=== PATIENT | female | born 1965 | race Caucasian/White ===

== ENCOUNTER 2022-08-24 11:49 | Emergency (ER) | payer BC, SELFPAY ==
[2022-08-24 12:19] VITALS: BP 158/103; PULSE 93; RESP 16; TEMP 36.9; O2SAT 98; BMI 39.9
[2022-08-24 12:44] VITALS: BP 171/97; PULSE 95; RESP 20; O2SAT 96
--- NOTE | 2022-08-24 12:48 | ED.GENADULT ---
HPI - General Adult General Date Seen: 08/24/22 Chief complaint: Unspecified Complaint, Adult Stated complaint: Covid+ getting worse Time Seen by Provider: 08/24/22 11:59 Source: patient History of Present Illness HPI narrative: Patient is a 56-year-old woman with underlying hypertension who presents for evaluation of COVID. She says on Thursday she developed a little bit of a scratchy throat and then on Thursday tested positive for COVID. She has had a cough and sore, scratchy throat since then. She comes in today, on Thursday, saying that she thinks she should be better by now. She has not run fevers. Denies chest pain. Is not short of breath. She has had 3 shots for COVID. She had COVID once previously and says that she was only sick for a few days. She does not currently smoke and has no major health problems. Related Data Home Medications Medication Instructions Recorded Confirmed Tylenol 08/24/22 amlodipine 5 mg tablet mg 08/24/22 Allergies Allergy/AdvReac Type Severity Reaction Status Date / Time No Known Drug Allergies Allergy Verified 08/24/22 12:22 Review of Systems Status of ROS: Reports: 10 or more systems reviewed and unremarkable except as noted in History and below [facility] Social History Smoking Status: Former smoker How often do you have a drink containing alcohol: monthly or less AUDIT-C Alcohol total score: 1 Non-prescribed substance use: denies use Exam Narrative: Exam Narrative: Vital signs as noted above. In general, an alert, nontoxic woman. Breathing easily. Head: Normocephalic, atraumatic. Eyes: Pupils are equal reactive. Extraocular movements are full. Conjunctivae are normal. ENT: Mucous membranes are moist. Throat is normal. Neck: Supple without lymphadenopathy. Heart: Regular rate and rhythm. No murmur or rub. Lungs: Clear bilaterally. No increased work of breathing, crackles or wheezes. Extremities: Well perfused. No edema. No calf tenderness. Pulses intact. Neurologic: Patient is alert and oriented to person and place. Speech is fluent. Face is symmetric. Moves all extremities equally. Affect: Tearful. Skin: Warm and dry. Well perfused. Const: Vital Signs, click to edit/add: Vital Signs - 24 hr 12/11/22 12:19 08/24/22 12:44 Temperature 98.4 F Pulse Rate [Right Pulse Oximeter] 93 95 Respiratory Rate 16 20 Blood Pressure [Le ft Upper Arm] 158/103 H 171/97 H Pulse Oximetry 98 96 Oxygen Delivery Me thod Room Air Room Air Documenting provider has reviewed patient's vital signs: yes Course Course Hospital Course: I had a lengthy conversation with her. Her exam is normal, vital signs aside from her blood pressure being abated, are reassuring. She is not tachypneic, O2 sats are normal. Lungs are clear. She is on day 6 of illness. She had brought up the possibility of Paxlovid, primarily because she was under the impression that it would help her feel better faster. I reviewed with her that 1., it has not been shown to reduce symptoms, 2., needs to be started in the 1st 5 days of illness, and 3. Given that she is under 65 without significant health problems, would not likely provide her significant benefit in any case. Overall, she does not show signs of significant illness here today. I think lab and x-ray are unlikely to provide a lot of additional benefit. Discussed that COVID is very frequently at 10-14 day illness. If not improving over the next week, recheck with primary care. Return for development of severe symptoms, worsening shortness of breath, offer the idea of an oximeter at home to monitor oxygen levels. Vital Signs Vital signs: Initial Vital Signs Temperature 98.4 F 08/24/22 12:19 Temperature Source Temporal Artery Scan 08/24/22 12:19 Pulse Rate 93 08/24/22 12:19 Respiratory Rate 16 08/24/22 12:19 Blood Pressure 158/103 H 08/24/22 12:19 Blood Pressure Mean 121 08/24/22 12:19 Blood Pressure Position Supine 08/24/22 12:19 Pulse Oximetry 98 08/24/22 12:19 Oxygen Delivery Method 08/24/22 12:19 Vital Signs Temperature 98.4 F 08/24/22 12:19 Pulse Rate 93 08/24/22 12:19 Respiratory Rate 16 08/24/22 12:19 Blood Pressure 158/103 H 08/24/22 12:19 Pulse Oximetry 98 08/24/22 12:19 Oxygen Delivery Method 08/24/22 12:19 Temperature 98.4 F 08/24/22 12:19 Pulse Rate 95 08/24/22 12:44 Respiratory Rate 20 08/24/22 12:44 Blood Pressure 171/97 H 08/24/22 12:44 Pulse Oximetry 96 08/24/22 12:44 Oxygen Delivery Method 08/24/22 12:44 Discharge Plan Discharge Clinical Impression: COVID-19 Patient Disposition: Home, Self-Care Condition: Stable Instructions: COVID-19 (Coronavirus Disease 2019) (ED) Additional Instructions: Ibuprofen 400 mg plus Tylenol 1000 mg 3 times daily with food as needed for sore throat or other aches and pains. Consider an oximeter at home to keep track of your oxygen levels. Levels below 90% you should be seen again. Recheck with primary care if not improved over the next 10 days. Return at any time for severe symptoms such as shortness of breath, chest pain, fainting, or other new symptoms. Prescriptions: No Action amlodipine 5 mg tablet Label Comments: Take 1 Tablet (5 mg) by mouth once daily. Tylenol Follow Up/Referrals: Lupe Madden DO [Primary Care Provider] - Stand Alone Forms: [facility] Info Instructions
== END 2022-08-24 12:59 | disposition home or self-care (01) ==
LOC: ED 12:53
PROVIDERS: Emergency Provider Emergency Medicine; PCP Family Medicine
DX: U07.1 COVID-19 (principal)
CPT/HCPCS: 99283

== ENCOUNTER 2022-12-26 16:37 | Emergency (ER) | payer BC, SELFPAY ==
[2022-12-26 16:47] VITALS: BP 132/72; PULSE 78; RESP 20; TEMP 36; O2SAT 96; BMI 40.7
--- NOTE | 2022-12-26 17:07 | ED.GENADULT ---
HPI - General Adult General Time Seen by Provider: 17:07 Date Seen: 12/26/22 Chief complaint: Dizziness/Vertigo Stated complaint: Dizziness, vomiting, Noise in left ear Time Seen by Provider: 12/26/22 17:05 Source: patient and RN notes reviewed Mode of arrival: ambulatory Limitations: no limitations History of Present Illness HPI narrative: 57-year-old female is coming in with episode of spinning sensation, ringing in her right ear, pressure in the right side of her head that started today. She was at work and about 130 started feeling like she was dizzy or spinning. By the time she got home, progressed to significant nausea and vomiting with it. When she got up to try to go to the bathroom felt like she was listing to the left. She had a similar episode about 2 weeks ago that started in the afternoon about 430, went to better 0 9, when she woke up around midnight, had gone away. She is notice some diminished hearing in the right ear. She has moved her head set from the right ear to the left side at work. She notes sometimes that she has felt like a whooshing sound in the right ear. No recent fevers chills or cough cold symptoms, no chest pain or palpitations, no shortness of breath. Extremities are working fine, no numbness tingling weakness. She is not aware of any family history of Meniere's disease. She is hoping that we can just pull some wax out of her ear, it feels full. Related Data Home Medications Medication Instructions Recorded Confirmed Tylenol 08/24/22 amlodipine 5 mg tablet mg 08/24/22 Previous Rx's Medication Instructions Recorded diazepam 5 mg tablet (Valium) 5 mg PO BID PRN #4 tabs 12/26/22 methylprednisolone 4 mg tablets in See Rx Instructions PO .COMPLEX 12/26/22 a dose pack (Medrol (Kevin)) #21 ea Allergies Allergy/AdvReac Type Severity Reaction Status Date / Time No Known Drug Allergies Allergy Verified 12/26/22 16:54 Review of Systems Status of ROS: Reports: 6 or more systems reviewed and unremarkable except as noted in History and below [facility] Social History Smoking Status: Former smoker How often do you have a drink containing alcohol: monthly or less AUDIT-C Alcohol total score: 1 Non-prescribed substance use: denies use Exam Const: Vital Signs, click to edit/add: Vital Signs - 24 hr 12/26/22 16:47 Temperature 96.8 F L Pulse Rate [Pulse Oximeter] 78 Respiratory Rate 20 Blood Pressure [Le ft Upper Arm] 132/72 Pulse Oximetry 96 Oxygen Delivery Me thod Room Air 57-year-old female is alert interactive no apparent distress. She has right beating nystagmus. Pupils are otherwise equal round and reactive, extraocular muscles intact with conjugate gaze. TMs canals are normal. Symmetrical facial function, oropharynx normal, speech normal. Neck is supple, no masses, no cervical adenopathy. Lungs are clear good air entry. CV regular rate and rhythm no murmur, normal S1-S2, no S3 or S4. No loss of motor strength, 5/5 and symmetric in upper and lower extremities. Normal light touch sensation. No dysmetria or tremors noted. Documenting provider has reviewed patient's vital signs: yes Course Reevaluation(s) Reevaluation #1: Spent time talking with patient and her regarding Meniere's disease. It is recommended by the ENT that I talked to to get neuro imaging but does not need to happen emergently. He would recommend an MRI with internal auditory canals with IV contrast. This can be done outpatient through the primary care clinic. I do recommend follow-up with ENT. He also recommended a Medrol Dosepak. I will send a prescription for few tablets of Valium should she have recurrent symptoms in the interim. I did go on up-to-date in review some of the symptoms, diagnosis, recommendations as far as Meniere's. Time: 18:47 Vital Signs Vital signs: Initial Vital Signs Temperature 96.8 F L 12/26/22 16:47 Temperature Source Temporal Artery Scan 12/26/22 16:47 Pulse Rate 78 12/26/22 16:47 Pulse Rhythm Regular 12/26/22 16:47 Pulse Strength 3+ Normal 12/26/22 16:47 Respiratory Rate 20 12/26/22 16:47 Blood Pressure 132/72 12/26/22 16:47 Blood Pressure Mean 92 12/26/22 16:47 Blood Pressure Position Right Lateral 12/26/22 16:47 Pulse Oximetry 96 12/26/22 16:47 Oxygen Delivery Method Room Air 12/26/22 16:47 Vital Signs Temperature 96.8 F L 12/26/22 16:47 Pulse Rate 78 12/26/22 16:47 Respiratory Rate 20 12/26/22 16:47 Blood Pressure 132/72 12/26/22 16:47 Pulse Oximetry 96 12/26/22 16:47 Oxygen Delivery Method Room Air 12/26/22 16:47 Temperature 96.8 F L 12/26/22 16:47 Pulse Rate 78 12/26/22 16:47 Respiratory Rate 20 12/26/22 16:47 Blood Pressure 132/72 12/26/22 16:47 Pulse Oximetry 96 12/26/22 16:47 Oxygen Delivery Method Room Air 12/26/22 16:47 Critical Care Time Critical Care Time Critical Care Time: No Discharge Plan Discharge Clinical Impression: Vertigo Patient Disposition: Home, Self-Care Condition: Improved Instructions: Meniere Disease (ED), Vertigo (ED) Additional Instructions: Take Medrol Dosepak as prescribed. Need to follow-up with your primary care provider or contact them and see if they will order an MRI with IV contrast of the brain and internal auditory canals. Recommend follow-up with ENT as soon as you can. Should you have recurrent symptoms, can try meclizine which is [id number]. If you have severe symptoms, I am sending in a prescription for Valium. Note that this is addictive in you should not drive or operate machinery while on it. I am not sending in enough tablets for you to become addicted to it but it is a consideration if you would need a long-term prescription. Review food recommendations associated with Meniere's disease. It is recommended you try to stay on a low-sodium diet. Activity Level: Activity as Tolerated Prescriptions: New methylprednisolone [Medrol (Kevin)] 4 mg tablets,dose pack See Rx Instructions .ROUTE .COMPLEX Qty: 21 0RF Rx Instructions: orally per package directions diazepam [Valium] 5 mg tablet 5 mg PO BID PRNQty: 4 0RF No Action amlodipine 5 mg tablet Patient Comments: Take 1 Tablet (5 mg) by mouth once daily. Tylenol Follow Up/Referrals: Lupe Madden DO [Primary Care Provider] - Stand Alone Forms: [facility] Info Instructions
== END 2022-12-26 19:04 | disposition home or self-care (01) ==
PROVIDERS: Emergency Provider Family Medicine; PCP Family Medicine
DX: R42 Dizziness and giddiness (principal)
CPT/HCPCS: 99282; 99283

== ENCOUNTER 2023-03-05 10:12 | Outpatient (CLI) | payer BC, SELFPAY | END 2023-03-05 10:13 | disposition home or self-care (01) | PROVIDERS: PCP Family Medicine; Visit Provider Otolaryngology | DX: R42 Dizziness and giddiness (principal) | CPT/HCPCS: 84443; 86039; 86431; 86618 ==

== ENCOUNTER 2024-07-14 06:19 | Day surgery (SDC) | payer BC, SELFPAY ==
[2024-07-14] VITALS (8 sets, daily range): BP systolic 141–153; BP diastolic 75–90; PULSE 71–85; RESP 16; TEMP 36.4; O2SAT 96–99; BMI 42.1
--- OUTSIDE RECORDS SUMMARY | 2024-07-14 06:21 | XMS_ITS | Clinical Summary ---
Author Organization [facility] Address [place], [place] [address] Care Team Providers Care Senior Games Technician Name Role Phone Lupe Madden DO Primary Care Provider Allergies Active Allergy Reactions Criticality Noted Date Comments Cyclobenzaprine Other - Describe In Comment Field 05/13/2019 constipation Medications Medication Sig Dispensed Refills Start Date End Date Status cholecalciferol (VITAMIN D) 1,000 unit capsule Take 5,000 units by mouth once daily. 73045 units a week 0 01/09/2014 Active ondansetron (ZOFRAN ODT) 4 mg disintegrating tabletIndications:Men iere disease, right Place 1 Tablet (4 mg) on the tongue every 8 hours if needed for Nausea/Vomiting. 30 Tablet 1 04/01/2023 Active loratadine (Claritin) 10 mg tablet Take 10 mg by mouth once daily. Active diazePAM (VALIUM) 5 mg tabletIndications:Men iere disease, unspecified laterality TAKE ONE TABLET (5mg) BY MOUTH TWICE DAILY NEEDED FOR Meniere's 10 Tablet 1 05/27/2023 Active CPAPIndications:ANALISA (obstructive sleep apnea) CPAP machine for home use at pressure of 4-15 cmw; nasal mask x1/3month with nasal pillows x 2/mo Heat humidifier x 1/5 year, Humidifier chamber x 1/6mo, standard tubing x 1/3mo, Headgear x 1/6mo, Chin strap x 1/6 months, Filters: Disposable x 2pk/1mo & Reusable x 1pk/6mo Length of use- 99% Use- daily 1 Each 11 07/01/2023 Active amLODIPine (NORVASC) 5 mg tabletIndications:Ess ential hypertension Take 1 Tablet (5 mg) by mouth once daily. 90 Tablet 4 06/01/2024 Active Active Problems Problem Noted Date Diagnosed Date Pap smear for cervical cancer screening 06/20/20 24 Overview (06/20/2024): 06/2024 NIL/HPV negative Plan: HPV-based testing due 06/2029 White coat syndrome with diagnosis of hypertensi on 05/14/2019 Routine adult health maintenance 12/20/2018 Overview (12/20/2018): Colonoscopy 12/2018 normal, repeat in 10 years Essential hypertension 2018 Nodule of flexor tendon sheath 2018 Tendonitis of finger 2018 ANALISA 04/08/2016 AHI-18 04/24/2016 Encounters Date Type Department Care Team Description 07/13/2024 Telephone [facility] [address] [place] [address] Lupe Madden DO Referral 07/11/2024 Orders Only [facility] [address] [place] [address] Lupe Madden DO Lab (Order Update) 07/06/2024 1:50 PM CDT Nurse/Clinic Staff Only [facility] [address] [place] [address] 07/06/2024 1:20 PM CDT Ancillary Procedure [facility] [address] [place] [address] 07/06/2024 Travel 07/04/2024 Travel 06/23/2024 Medical Messaging [facility] [address] [place] [address] Lupe Madden DO Carpal tunnel Referral 06/23/2024 Orders Only [address] [address] Lupe Madden DO <No scans attached> 06/22/2024 Orders Only [facility] [address] [place] [address] Lupe Madden DO 1 scan: (1-Ord) [facility] 06/10/2024 Orders Only [facility] [address] [place] [address] Lupe Madden DO <No scans attached> 06/02/2024 Orders Only [facility] Scanner 1 scan: (1-Ord) [facility], PAP AND/OR MOLECULAR RESULTS, 06/02/2024 06/02/2024 Orders Only [facility] Scanner 1 scan: (1-Ord) [facility], MULTIPLE LABS, 06/02/2024 06/01/2024 2:15 PM CDT Office Visit [facility] [address] [place] [address] Lupe Madden DO Physical (58 yr/); Referral (carpal tunnel referral/); Immunization/Injecti on 06/01/2024 Travel 05/30/2024 Refill [facility] [address] [place] [address] Lupe Madden DO Refill Request (Amlodipine) from Last 3 Months Immunizations Name Administration Dates Next Due AMB Influenza, IIV3 (Age >=3 years)(Flu Clinic Only) 07/01/2013,07/15/2012,07/10/2011 AMB Influenza, IIV4 PF (=>6 mos Flulaval,Fluzone Fluarix)(Flu Clinic Only) 07/04/2020,07/02/2019,07/03/2017,2015,08/03/2015,06/29/2014 INFLUENZA, IIV3 PF (AGE >= 6 MO) 07/06/2024,06/15 Influenza, IIV3 (Age >=3 years) 07/01/20 10,07/21/2008,07/08/2007,2005,07/09/2005 Influenza, IIV4 05/27/2023,,05/22/2021,2017 Td (Age >=7 Years) 07/31/2003 Td, Preservative Free (age > = 7 Years) 06/01/2024 Tdap 01/09/2014 Zoster (Shingrix-RZV, recombinant) 02/09/2019, Family History Medical History Relation Name Comments Other Father [place] Cancer-breast Maternal Aunt Hypertension Mother Relation Name Status Comments Father Maternal Aunt Mother Social History Tobacco Use Types Packs/Day Years Used Date Smoking Tobacco: Never Smokeless Tobacco: Never Tobacco Cessation:Counseling Given: Yes Alcohol Use Standard Drinks/Week Comments Not Currently 0 (1 standard drink = 0.6 oz pur e alcohol) one drink every three months PHQ-2 Answer Date Recorded PHQ-2 TOTAL SCORE 0 06/01/2024 Social Connections Answer Date Recorded Do you often feel lonely or isolated from those around you? 0 06/01/2024 Financial Resource Strain Answer Date R ecorded Difficulty of Paying Living Expenses 3 06/01/2024 Difficulty of Paying Living Expenses Not on file 06/01/2024 Food Insecurity Answer Date Recorded Do you worry your food will run out before you are able to buy more? 1 06/01/2024 Transportation Needs Answer Date Record ed Does lack of transportation keep you from medica l appointments? 1 06/01/2024 Does lack of transportation keep you from work, meetings or getting things that you need? 1 06/01/2024 Housing Stability Answer Date Recorded What is your housing situation today? 1 06/01/2024 Sex and Gender Information Value Date Recorded Sex Assigned at Not on file Gender Identity Not on file Sexual Orientation Not on file Obstetrics History Para Term AB IAB SAB Ectopic Multiple Livin g Live Births 1 1 Date Outcome GA Total Labor Labor/2nd/3rd Weight Sex Type Anes PTL Claudia A1 A5 Name Clin Last Filed Vital Signs Vital Sign Reading Time Taken Comments Blood Pressure 144/84 06/01/2024 2:22 PM CDT Pulse 91 06/01/2024 2:22 PM CDT Temperature 36.8 ??C (98.3 ??F) 06/01/2024 2:23 PM CD T Respiratory Rate 18 05/26/2023 2:15 PM CDT Oxygen Saturation 96% 06/01/2024 2:22 PM CDT Inhaled Oxygen Concentration - - Weight 106.4 kg (234 lb 9.6 oz) 06/01/2024 2:22 PM CDT Height 159.6 cm (5' 2.84) 06/01/2024 2:22 PM CD T Body Mass Index 41.78 06/01/2024 2:22 PM CDT Plan of Treatment Upcoming Encounters Date Type Department Care Team (Late st Contact Info) Description 07/20/2024 11:15 AM [facility] [employer] Orders Only [facility] [address] [place] [address] Lab, [facility] Maintenance Due Date Last Done Comments COVID-19 vaccine series ( season) 2024 07/24/2021, 10/26/2020, 09/28/2020 BMI (ht and wt on same day) for age 18+ 06/01/2025 06/01/2024, 06/24/2023, 05/27/2023, Additional history exists Depression screening for age 12+ 06/01/2025 06/01/2024, 05/27/2023, 05/26/2023, Additional history exists Mammogram for age 45-75 07/06/2025 07/06/20 24, 07/01/2023, 06/25/2022, Additional history exists Lipids for age 45-75 05/27/2028 05/27/2023, 06/11/2022, 05/22/2021, Additional history exists Colonoscopy through age 75 12/20/202812/20, 12/20/2018, 12/20/2018, Additional history exists Pap test for age 21-65 06/15/2029 , 11/17/2018, 11/17/2018, Additional history exists Tetanus booster 06/01/2034 06/01/2024, 12/14, 07/31/2003 Tdap Completed 01/09/2014 Hepatitis C screening for age 18-79 Completed 11/17/2018 Zoster (shingles) series for age 50+ Completed 02/09/2019, 11/17/2018 HIV for age 15-65 Completed 05/27/2023 Influenza for age 50-64 Completed 07/06/20 24, 05/27/2023, 05/23/2022, Additional history exists Pneumococcal series for age 6-64 Aged Out No longer eligible based on patient's age to complete this topic Procedures Procedure Name Priority Date/Time Associated Diagnosis Comments XR MAMMO BILAT SCREENING Routine 07/06/2024 1:48 PM CDT Breast cancer screening by mammogram EMG Routine 06/17/2024 12:00 AM CDT Carpal tunnel syndrome on both sides 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 PAP AND HPV DNA - AGE 25 AND OVER ([facility]) Routine 06/15/2024 6:00 PM CDT Screening for cervical cancer SCAN-PATHOLOGY REPORT 06/02/2024 12:00 AM CDT SCAN-PATHOLOGY REPORT 06/02/2024 12:00 AM CDT ANTI HIV 1/2 Routine 05/27/2023 8:50 AM CDT Screening for HIV (human immunodeficiency virus) LIPID PANEL W REFLEX MEASURED LDL Routine 05/27/2023 8:50 AM CDT Lipid screening COLONOSCOPY SCREENING Routine 12/20/2018 12:00 PM CDT Screening for colon cancer ANTI HCV Routine 11/17/2018 9:49 AM [facility] [employer] Need for hepatitis C screening test from Last 3 Months or Most Recently Relevant to Health Maintenance Results * XR MAMMO BILAT SCREENING (07/06/2024 1:48 PM CDT) Anatomical Region Laterality Modality BREASTS, Breast Left, Breast Right Bilateral Mammography Impressions 07/06/2024 3:29 PM CDT ??There is no radiographic evidence for malignancy. ??Recommend annual mammograms. MAMMOGRAM ASSESSMENT: ??ACR 1 Negative PATIENTS: You will also receive a letter with your examination results in an easy to read format. ??If you have questions about your results, please contact your referring provider. Narrative 07/06/2024 3:29 PM CDT For Patients: As a result of the Century Cures Act, medical imaging exams and procedure reports are released immediately into your electronic medical record. You may view this report before your referring provider. If you have questions, please contact your health care provider. XR MAMMO BILAT SCREENING [[id number]] CLINICAL HISTORY: ??This is an asymptomatic 58 y.o. patient. INDICATION FOR EXAM: Mammogram Screening. TECHNIQUE: CC & MLO views were obtained. ??This study was evaluated with the assistance of Computer-Aided Detection. COMPARISON FILM: Yes 07/01/23 [facility] 06/25/22 [facility] FINDINGS: ??There are scattered areas of fibroglandular density. There are no dominant masses, suspicious micro calcifications or areas of architectural distortion. Lupe Madden DO MAMMO * [facility] (06/17/2024 12:00 AM CDT) Lupe Madden DO NEUROLOGY ORD * 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 THIN PREP PAP AND HPV DNA - AGE 25 AND OVER ([facility] (06/15/2024 6:00 PM CDT) CLINICAL INFORMATION [facility] Comment:Postmenopausal LMP [facility] Comment:NONE GIVEN PREV. PAP [facility] Comment:NONE GIVEN PREV. BX [facility] Comment:NONE GIVEN SOURCE 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 [facility] Comment:Cervix STATEMENT OF ADEQUACY [facility] Comment: Satisfactory for evaluation. Endocervical/transformation zone component present. INTERPRETATION/RESU LT [facility] Comment: Cytology Results: Negative for intraepithelial lesion or malignancy. COMMENT [facility] Comment: This Pap test has been evaluated with computer assisted technology. 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 It is not a diagnostic test and is subject to false negative and false positive results. It is most reliable when a satisfactory sample, regularly obtained, is submitted with relevant clinical findings and history, and when the Pap result is evaluated along with historic and current clinical information. HPV HIGH RISK Not Detected NOT DETECTED [facility] Comment: Not Detected High Risk HPV types (16,18,31,33,35,39,45,51,52, 56,58,59,66,68) were not detected. Other HPV types which cause anogenital lesions may be present. The significance of the other types of HPV in malignant processes has not been established. Methodology: Real Time PCR ? NO COLLECTION DATE RECEIVED. WE HAVE USED THE DATE THE SPECIMEN WAS RECEIVED BY THIS LABORATORY THE COLLECTION DATE. IF THIS IS INCORRECT, PLEASE CONTACT CLIENT SERVICES. PHONE NUMBER: [phone] Other (Other) 06/02/2024 9:15 AM CDT Narrative [facility] - 06/15/2024 6:00 PM CDT FASTING: UNKNOWN Lupe Madden DO PATHOLOGY/CYTOLOGY Performing Organization Address [facility]/ZIP Co de Phone Number [facility] [address] [place] [address], [address] [place] [address] * SCAN-PATHOLOGY REPORT (06/02/2024 12:00 AM CDT) Only the most recent of2 resultswithin the time period is included. Scanner OTHER * LIPID PANEL W REFLEX MEASURED LDL (05/27/2023 8:50 AM CDT) CHOLESTEROL,TOTAL 185 100 - 199 mg/dL 05/28/2023 1:27 AM CDT [facility] Comment: Cholesterol, Total Reference Ranges Desirable <200 mg/dL Borderline 200-239 mg/dL High >=240 mg/dL TRIGLYCERIDES 74 <150 mg/dL 05/28/2023 1:27 AM CDT [email or web address] HDL CHOLESTEROL 51 >40 mg/dL 1:27 AM CDT [facility] NON-HDL CHOLESTEROL 134 <145 mg/dl 05/28/2023 1:27 AM CDT [facility] CHOL/HDL RATIO 3.63 <4.50 05/28/2023 1:27 AM CDT [facility] LDL CHOLESTEROL 119 <=130 mg/dL 05/28/2023 1:27 AM CDT [facility] VLDL CHOLESTEROL 15 <=30 mg/dL 05/28/2023 1:27 AM CDT [facility] PROVIDER ORDERED STATUS RANDOM 05/28/2023 1:27 AM CDT [facility] Blood BLOOD SPECIMEN / Unknown Venipuncture / Unknown 05/27/2023 8:50 AM CDT 05/27/2023 8:55 AM CDT Lupe Madden DO CHEMISTRY Performing Organization Address [facility] Co de Phone Number [facility] [address] [place] [address], * ANTI HIV 1/2 [21521.0] (05/27/2023 8:50 AM CDT) HIV-1/HIV-2 SCREEN Non-Reacti ve Non-Reacti ve 05/28/2023 1:11 AM CDT [facility] Comment:HIV-1 p24 and HIV-1/ HIV-2 Ab Not Detected. Blood BLOOD SPECIMEN / Unknown Venipuncture / Unknown 05/27/2023 8:50 AM CDT 05/27/2023 8:55 AM CDT Lupe Madden DO SEND OUTS Performing Organization Address City/[facility]/ZIP Co de Phone Number [facility] [address] [place] [address], * COLONOSCOPY SCREENING (12/20/2018 12:00 PM CDT) Lupe Madden DO GI PROCEDURE ORD * ANTI HCV [[id number]] (11/17/2018 9:49 AM [facility] [facility] [employer]) HEPATITIS C ANTIBODY Non-React troy Non-React troy 11/17/2018 5:03 PM [facility] [facility] Comment:Antibodies to HCV no t detected; does not exclude the possibility of exposure to HCV. Blood BLOOD SPECIMEN / Unknown Venipuncture / Unknown 11/17/2018 9:49 AM [facility] 11/17/2018 9:51 AM [facility] [facility] [employer] Lupe Madden DO SEND OUTS [facility] [address] [place] [address], [place] from Last 3 Months or Most Recently Relevant to Health Maintenance Care Teams Senior Games Technician Relationship Specialty Start Date End Date [place] [address] [address] PCP - General Family Practice 09/20/13
[2024-07-14] MEDS: LIDOCAINE 1%-EPI 1:100,000 20 ML INFILTRATI (06:23)
[2024-07-14] MEDS: BUPIVACAINE 0.5 %/EPI 1:200K INJECTION (07:15)
--- NOTE | 2024-07-14 07:56 | P.ORPRC_ITS ---
Procedure Note Date of procedure: 07/14/24 Procedure: Preop diagnosis: Right upper extremity carpal tunnel syndrome Postop diagnosis: Right upper extremity carpal tunnel syndrome Procedure: Right upper extremity carpal tunnel release Anesthesia: Local Surgeon: Fortunato Schmidt MD front office medical assistant: ANNA Elise EBL: 2 mL Complications: None Specimens: None Drains: None Indications: The patient has a history of right upper extremity carpal tunnel syndrome sympt oms. Despite appropriate nonoperative management consisting of nighttime bracing and occupational therapy they continue to have symptoms. Operative intervention was recommended. The risks, benefits alternatives and expected outcomes were discussed in detail. These included but were not limited to: Infection, bleeding, injury to blood vessel or nerve, venous thromboembolism. All questions were answered to their satisfaction. The patient was placed supine on the operating room table. Local anesthesia was established with 0.5% Marcaine with epinephrine and 2% lidocaine with epinephrine. The hand was prepped and draped in usual sterile fashion. A longitudinal incision was made centered over the radial border of the ring finger at the base of the palm. Subcutaneous dissection was sharply taken through the palmar fascia and the palmaris brevis to the transverse carpal ligament. The ligament was divided in line with the incision. Proximal and distal dissection was carried with tenotomy and Metzenbaum scissors for a wide decompression of the carpal tunnel. The wound was closed with a 3-0 nylon. A bulky dry dressing was applied, sponge and needle counts were correct x 2. The patient tolerated the procedure well, there were no apparent complications. They were sent to same day surgery in satisfactory condition. Plan: Use of the hand as tolerates. Discontinue the intraoperative dressing on postoperative day 3 and may get the wound wet as tolerates. Follow up in the office in 2 weeks for a wound check and suture removal.
== END 2024-07-14 08:15 | disposition home or self-care (01) ==
LOC: OR 06:20
PROVIDERS: PCP Family Medicine; Visit Provider Orthopaedic Surgery
PROC: (CPT 64721; principal; 2024-07-14 07:15)
DX: G56.01 Carpal tunnel syndrome, right upper limb (principal)
CPT/HCPCS: 64721; J2704; J3490

== ENCOUNTER 2024-09-01 09:21 | Day surgery (SDC) | payer BC, SELFPAY ==
[2024-09-01] VITALS (11 sets, daily range): BP systolic 132–165; BP diastolic 66–89; PULSE 78–81; RESP 12–20; TEMP 36.4; O2SAT 96–99; BMI 39.8
[2024-09-01] MEDS: LIDOCAINE 1%-EPI 1:100,000 20 ML INFILTRATI (11:24)
[2024-09-01] MEDS: BUPIVACAINE 0.5 %/EPI 1:200K 6 ML INJECTION (11:24)
--- NOTE | 2024-09-01 12:00 | PM.ORPRC ---
Procedure Note Date of procedure: 09/01/24 Procedure: Preop diagnosis: Left upper extremity carpal tunnel syndrome Postop diagnosis: Left upper extremity carpal tunnel syndrome Procedure: Left upper extremity carpal tunnel release Anesthesia: Local Surgeon: Fortunato Schmidt MD apartment assistant manager: Brinda Stuart PA-C EBL: 5 mL Complications: None Specimens: None Drains: None Indications: The patient has a history of left upper extremity carpal tunnel syndrome symptoms. Despite appropriate nonoperative management consisting of nighttime bracing and occupational therapy they continue to have symptoms. Operative intervention was recommended. The risks, benefits alternatives and expected outcomes were discussed in detail. These included but were not limited to: Infection, bleeding, injury to blood vessel or nerve, venous thromboembolism. All questions were answered to their satisfaction. The patient was placed supine on the operating room table. Local anesthesia was established with 0.5% Marcaine with epinephrine and 2% lidocaine with epinephrine. The hand was prepped and draped in usual sterile fashion. A longitudinal incision was made centered over the radial border of the ring finger at the base of the palm. Subcutaneous dissection was sharply taken through the palmar fascia and the palmaris brevis to the transverse carpal ligament. The ligament was divided in line with the incision. Proximal and distal dissection was carried with tenotomy and Metzenbaum scissors for a wide decompression of the carpal tunnel. The wound was closed with a 3-0 nylon. A bulky dry dressing was applied, sponge and needle counts were correct x 2. The patient tolerated the procedure well, there were no apparent complications. They were sent to same day surgery in satisfactory condition. Plan: Use of the hand as tolerates. Discontinue the intraoperative dressing on postoperative day 3 and may get the wound wet as tolerates. Follow up in the office in 2 weeks for a wound check and suture removal.
[2024-09-01] MEDS: ETHYL CHLORIDE 1 APPLICATION 1 APPLIC TOPICAL (12:06)
== END 2024-09-01 12:22 | disposition home or self-care (01) ==
PROVIDERS: PCP Family Medicine; Visit Provider Orthopaedic Surgery
PROC: (CPT 64721; principal; 2024-09-01 11:15)
DX: G56.02 Carpal tunnel syndrome, left upper limb (principal)
CPT/HCPCS: 64721; J3490